=== PATIENT | male | born 1955 | race African-American/Black ===

== ENCOUNTER 2018-06-22 18:09 | Emergency (ER) | payer OTHER ==
[~2018-06-22] VITALS: Ht 180.3 cm; Wt 109.8 kg
[2018-06-22 19:30] VITALS: BP 123/70
[2018-06-22] MEDS ORDERED: Bacitracin Oint UD TOPIC ONE (19:30)
[2018-06-22] MEDS ORDERED: AMERIGEL WOUN28.3 GM TP (19:44)
[2018-06-22] MEDS ORDERED: BACTRIM DS TAB1 EAC1 ORAL (19:44)
[2018-06-22 19:50] VITALS: BP 123/70
--- NOTE | 2018-06-22 23:50 | Emergency Room Report ---
History of Present Illness General Chief Complaint: General Complaint Source: Patient Present Illness HPI 62-year-old male presents ED for evaluation. Patient states he has an ulcer to the bottom of his left foot. Unclear how long it is been there. Patient does have psychiatric history and goes to [facility] who referred patient here. Patient is a diabetic. Accu-Chek in the 200s. Patient states the pain is 8 out of 10, dull, nonradiating. Denies fevers or chills. Denies any discharge. No other aggravating or relieving factors. Denies any other associated symptoms Allergies: Coded Allergies: No Known Allergies (Verified Allergy, Mild, 08/14/09) Patient History Past Medical History: DM, psych hx Past Surgical History: none Pertinent Family History: none Social History: Denies: smoking, alcohol use, drug use Immunizations: UTD Reviewed Nursing Documentation: PMH: Agreed; PSxH: Agreed Nursing Documentation-PMH Hx Hypertension: Yes Hx Diabetes: Yes Review of Systems All Other Systems: negative except mentioned in HPI Physical Exam Vital Signs Date Time Temp Pulse Resp B/P (MAP) Pulse Ox O2 Delivery O2 Flow Rate FiO2 06/22/18 18:19 98.6 112 18 123/70 99 Room Air 98.6 Sp02 EP Interpretation: reviewed, normal General Appearance: no apparent distress, alert, GCS 15, non-toxic Head: normocephalic Eyes: bilateral eye normal inspection, bilateral eye PERRL ENT: normal ENT inspection Neck: normal inspection Respiratory: normal inspection Cardiovascular #1: normal inspection Gastrointestinal: normal inspection Rectal: deferred Genitourinary: no CVA tenderness Musculoskeletal: normal inspection Neurologic: alert, oriented x3, responsive, motor strength/tone normal, sensory intact, speech normal Psychiatric: anxious Skin: other - 2x2cm ulceration to base of L big toe. Lymphatic: normal inspection Medical Decision Making Diagnostic Impression: Primary Impression: Foot ulcer Qualified Codes: L97.529 - Non-pressure chronic ulcer of other part of left foot with unspecified severity ER Course Hospital Course 62 yo M presents to ED c/o ulcer to bottom of left foot Differential diagnoses include: Cellulitis, dermatitis, insect bite, abscess Clinical course Patient placed on stretcher. After initial history, physical exam reveals an enderly male in no acute distress. On exam there is an ulceration to the base of his left big toe. There is no evidence of bony or muscle exposure. Discussed findings with Dr. Pizarro (Podiatry); recommends Bactrim 2 weeks and Amerigel with dressings. He will see patient as outpatient Diagnosis - foot ulcer stable and discharged to home with prescription for Rx Bactrim DS, Amerigel. wound care instructions given. Instructed to followup with podiatry. Instructed return to ED if symptoms recur or worsen Last Vital Signs Date Time Temp Pulse Resp B/P (MAP) Pulse Ox O2 Delivery O2 Flow Rate FiO2 06/22/18 18:19 98.6 112 18 123/70 99 Room Air 98.6 Status: improved Disposition: HOME, SELF-CARE Condition: Stable Scripts Zinc Acetate/[place]/New Site (AMERIGEL WOUND DRESSING GEL) 28.3 Gm Gel..gram. 28.3 GM TP DAILY, #28.3 GM Prov: Rob Leyva MD 06/22/18 Trimethoprim/Sulfamethoxazole 160/800* (BACTRIM DS TABLET*) 1 Each Tablet 1 TAB ORAL Q12H for 14 Days, TAB 0 Refills Prov: Rob Leyva MD 06/22/18 Referrals: TU PIZARRO M.D. Patient Instructions: Diabetes and Foot Care Additional Instructions: apply AMERIGEL to wound daily. get from [facility] Rob Leyva MD Jun 22, 2018 23:49
== END 2018-06-22 21:00 | disposition home or self-care (01) ==
LOC: EMR 20:46
DX: E11.621 Type 2 diabetes mellitus with foot ulcer (principal); I10 Essential (primary) hypertension; F29 Unspecified psychosis not due to a substance or known physiological condition
CPT/HCPCS: 99283